=== PATIENT | female | born 1965 | race African-American/Black ===

== ENCOUNTER 2016-06-22 15:52 | Emergency (ER) | payer MEDICAID ==
[~2016-06-22] VITALS: Ht 167.6 cm; Wt 101.8 kg
[2016-06-22 16:00] VITALS: BP 151/90
[2016-06-22] MEDS ORDERED: FAMOTIDINE 20 MG/2 ML IVP ONE (16:30)
[2016-06-22] MEDS ORDERED: ONDANSETRON 2MG/ML, 2ML IVPush ONE (16:30)
[2016-06-22] MEDS ORDERED: SODIUM CHLORIDE 0.9% 1,000ML IVBOLUS ONE (16:30)
[2016-06-22] MEDS ORDERED: SODIUM CHLORIDE FLUSH 10ML SYR IVF ONE (16:30)
[2016-06-22 16:35] LABS: BLOOD UREA NITROGEN 13 mg/dL (7-18)
[2016-06-22] MEDS ORDERED: LISI-167 PO (16:40)
[2016-06-22] MEDS ORDERED: GLIM1TAB2 PO (16:40)
[2016-06-22 16:41] LABS: ASPARTATE AMINO TRANSFERASE 12 U/L (15-37)
[2016-06-22] MEDS ORDERED: ONDANSETRON 2MG/ML, 2ML ONE (17:06)
[2016-06-22] MEDS ORDERED: FAMOTIDINE 20 MG/2 ML ONE (17:06)
[2016-06-22] MEDS ORDERED: ONDANSETRON ODT 4 MG ONE (17:17)
[2016-06-22] MEDS ORDERED: ONDANSETRON ODT 8 MG PO ONE (17:30)
[2016-06-22] MEDS ORDERED: ONDANSETRON 4 MG TABLET PO ONE (18:00)
== END 2016-06-22 17:35 | disposition home or self-care (01) ==
LOC: ED 17:29
DX: K52.9 Noninfective gastroenteritis and colitis, unspecified (principal)
CPT/HCPCS: 36415; 80053; 81003; 83690; 84703; 85025; 99284; Q0162

== ENCOUNTER 2016-11-01 10:34 | Emergency (ER) | payer MEDICAID ==
[~2016-11-01] VITALS: Ht 167.6 cm; Wt 102.2 kg
[~2016-11-01 10:34] MED LIST: GLIM1TAB2 PO; LISI-167 PO
[2016-11-01 10:35] VITALS: BP 161/93
== END 2016-11-01 11:28 | disposition home or self-care (01) ==
LOC: ED 11:00
DX: K08.89 Other specified disorders of teeth and supporting structures (principal)
CPT/HCPCS: 99283

== ENCOUNTER 2017-07-22 01:10 | Emergency (ER) | payer SELFPAY ==
[~2017-07-22] VITALS: Ht 167.6 cm; Wt 95.3 kg
[2017-07-22 01:12] VITALS: BP 142/83
[2017-07-22 01:57] LABS: BASOPHILS # (AUTO) 0.01 x10^3/uL (0-0.1); BASOPHILS % (AUTO) 0 % (0-1); EOSINOPHILS # (AUTO) 0.02 x10^3/uL (0-0.4); EOSINOPHILS % (AUTO) 1 % (1-7); LYMPHOCYTES # (AUTO) 1.63 x10^3/uL (1-3.4); LYMPHOCYTES % (AUTO) 48 % (22-44); MD NO; MEAN CORPUSCULAR HEMOGLOBIN 28.3 pg (27.0-34.8); MEAN CORPUSCULAR VOLUME 85.8 fL (80-100); MEAN PLATELET VOLUME 8.8 fL (7.4-10.4); MONOCYTES # (AUTO) 0.36 x10^3/uL (0.2-0.8); MONOCYTES % (AUTO) 11 % (2-9); NEUTROPHILS # (AUTO) 1.38 x10^3/uL (1.8-6.8); NEUTROPHILS % (AUTO) 41 % (42-75); PLATELET COUNT 240 x10^3/uL (130-400); RED BLOOD COUNT 4.39 x10^6/uL (3.82-5.3); RED CELL DISTRIBUTION WIDTH 13.5 % (9.6-15.2)
[2017-07-22 02:09] LABS: ALANINE AMINOTRANSFERASE 23 U/L (12-78); ALBUMIN 3.3 g/dL (3.4-5.0); ANION GAP 8 mmol/L (5-15); CALCIUM 8.4 mg/dL (8.5-10.1); CHLORIDE 106 mmol/L (98-107); CREATININE 0.95 mg/dL (0.55-1.02)
[2017-07-22 02:12] LABS: ALKALINE PHOSPHATASE 84 U/L (45-117); BILIRUBIN,TOTAL 0.4 mg/dL (0.2-1.0); TOTAL PROTEIN 7.9 g/dL (6.4-8.2)
[2017-07-22 03:02] LABS: CLOSTRIDIUM DIFFICILE ANTIGEN NEGATIVE; CLOSTRIDIUM DIFFICILE TOXIN NEGATIVE (Negative)
== END 2017-07-22 03:43 | disposition home or self-care (01) ==
LOC: ED 01:54
DX: R19.7 Diarrhea, unspecified (principal)
CPT/HCPCS: 36415; 80053; 83690; 85025; 87324; 99284